=== PATIENT | female | born 1985 | race Asian ===

== ENCOUNTER 2021-11-17 08:15 | Inpatient (IN) | payer OTHER ==
[2021-11-17 09:21] VITALS: BMI 35.6
[2021-11-17] MEDS: ELECTROLYTE-148 SOLN 1,000 ML IV SCH ×3 (09:45→22:00)
[2021-11-17] MEDS ORDERED: OXYTOCIN 30 UNITS in 0.9% NS 30 UNIT/500 ML INFUS.BAG IVPB SCH (11:30)
[2021-11-17] MEDS ORDERED: OXYTOCIN 30 UNITS in 0.9% NS 30 UNIT/500 ML INFUS.BAG IVPB ONE (12:29)
[2021-11-17] MEDS ORDERED: FENTANYL/BUPIVACAINE/NS/PF - PCEA - 50 ML DISP.SYRIN EP ONE (21:08)
[2021-11-17] MEDS ORDERED: morphine SULFATE/PF 1 MG/2 ML (2cc Syringe - QUVA) ONE (22:35)
[2021-11-17] MEDS ORDERED: PHENYLEPHRINE HCL 10 MG/1 ML SINGLE DOSE VIAL ONE (22:38)
[2021-11-17] MEDS ORDERED: CITRIC ACID/SODIUM CITRATE 30 ML UNIT-DOSE CUP PO ONE (22:46)
[2021-11-17] MEDS ORDERED: KETOROLAC TROMETHAMINE 30 MG/1 ML VIAL ONE (23:51)
[2021-11-17] MEDS ORDERED: OXYTOCIN 10 UNITS/ML VIAL ONE (23:51)
[2021-11-17] MEDS ORDERED: ONDANSETRON 4 MG/2 ML VIAL ONE (23:51)
[2021-11-17] MEDS ORDERED: ceFAZolin SODIUM 1 GM VIAL ONE (23:51)
[2021-11-18] MEDS ORDERED: ONDANSETRON 4 MG/2 ML VIAL IVPB PRN (00:14)
[2021-11-18] MEDS ORDERED: ACETAMINOPHEN 1000 MG/100 ML BAG IVPB PRN (00:14)
[2021-11-18] MEDS ORDERED: IBUPROFEN 600 MG TABLET (FP) PO PRN (00:14)
[2021-11-18] MEDS ORDERED: ACETAMINOPHEN 325 MG TABLET (FP) PO PRN (00:14)
[2021-11-18] MEDS ORDERED: IBUPROFEN 800 MG/8 ML IJ IVPB PRN (00:14)
[2021-11-18] MEDS ORDERED: OXYTOCIN 20 UNITS in 0.9% NS 20 UNIT/1,000 ML INFUS.BAG IV SCH (00:15)
[2021-11-18] MEDS ORDERED: OXYTOCIN 10 UNITS/ML VIAL ONE (00:15)
[2021-11-18] MEDS ORDERED: morphine SULFATE/PF 1 MG/2 ML (2cc Syringe - QUVA) IT ONE (00:50)
[2021-11-18] MEDS ORDERED: ACETAMINOPHEN 1000 MG/100 ML BAG IVPB ONE (00:51)
[2021-11-18] MEDS ORDERED: OXYTOCIN 20 UNITS in 0.9% NS 20 UNIT/1,000 ML INFUS.BAG IV ONE (02:30)
[2021-11-18] MEDS: CEFAZOLIN 2 GM in DEXTROSE 5%-WATER - 50 ML IVPB SCH ×2 (04:17→11:44)
[2021-11-18] MEDS: SENNOSIDES/DOCUSATE COMBO (SENNA PLUS) TABLET (UD) PO PRN (17:41)
[2021-11-18] MEDS: oxyCODONE HCL 5 MG TABLET PO PRN (17:42)
[2021-11-18] MEDS: SIMETHICONE 80 MG TAB.CHEW (FP) PO PRN ×2 (17:42→20:25)
[2021-11-19] MEDS ORDERED: BISACODYL 10 MG SUPP.RECT RC PRN (00:15)
[2021-11-19] MEDS: SIMETHICONE 80 MG TAB.CHEW (FP) PO PRN ×3 (04:40→21:48)
[2021-11-19] MEDS: oxyCODONE HCL 5 MG TABLET PO PRN (04:40)
[2021-11-19 08:19] LABS: EOS % 0.1 % (0-4.5); HEMATOCRIT 34.8 % (32.4-45.2); HEMOGLOBIN 11.6 GM/dL (10.7-15.3); LYMPH % 7.6 % (8-40); MCH 28.5 pg (25.7-33.7); MCHC 33.4 g/dl (32.0-36.0); MEAN CELL VOLUME 85.3 fl (80-96); MEAN PLT VOLUME 11.5 fl (7.5-11.1); MONO % 5.6 % (3.8-10.2); NEUT % 86.7 % (42.8-82.8); PLATELET COUNT 149 10^3/uL (134-434); RBC 4.08 M/mm3 (3.60-5.2); RDW 14.7 % (11.6-15.6); WHITE BLOOD COUNT 17.1 K/mm3 (4.0-10.0)
[2021-11-19] MEDS ORDERED: ACETAMINOPHEN 1000 MG/100 ML BAG IVPB ONE ×2 (14:32→15:45)
[2021-11-19] MEDS ORDERED: ACETAMINOPHEN 500 MG TABLET (FP) PO SCH (14:45)
[2021-11-19] MEDS ORDERED: KETOROLAC TROMETHAMINE 30 MG/1 ML VIAL IVPUSH ONE ×2 (17:00→22:00)
[2021-11-19] MEDS ORDERED: IBUPROFEN 600 MG TABLET (FP) PO PRN (17:42)
[2021-11-19 19:22] LABS: EPI CELLS 28 /uL (0-25.1); HYALINE CASTS 5 /uL (0-3.1); PH,URINE 6.5 (5.0-8.0); URINE APPEARANCE CLOUDY; URINE BACTERIA 113 /uL (0-1359); URINE BILIRUBIN NEGATIVE (NEGATIVE); URINE COLOR YELLOW; URINE GLUCOSE (UA) NEGATIVE (NEGATIVE); URINE KETONE NEGATIVE (NEGATIVE); URINE LEUK ESTERASE 2+ (NEGATIVE); URINE NITRITE NEGATIVE (NEGATIVE); URINE PROTEIN 1+ (NEGATIVE); URINE RBC 679 /uL (0-23.9); URINE UROBILINOGEN 0.2 mg/dL (0.2-1.0); URINE WBC 350 /uL (0-25.8)
[2021-11-19] MEDS: SENNOSIDES/DOCUSATE COMBO (SENNA PLUS) TABLET (UD) PO PRN (21:48)
[2021-11-19] MEDS: ACETAMINOPHEN 500 MG TABLET (FP) PO SCH (21:50)
[2021-11-19] MEDS ORDERED: IBUPROFEN 600 MG TABLET (FP) PO SCH (23:00)
[2021-11-19] MEDS: CEPHALEXIN MONOHYDRATE 500 MG CAPSULE (UD) PO SCH (23:55)
[2021-11-20] MEDS: ACETAMINOPHEN 500 MG TABLET (FP) PO SCH ×3 (02:29→15:21)
[2021-11-20] MEDS: SIMETHICONE 80 MG TAB.CHEW (FP) PO PRN ×2 (02:29→15:21)
[2021-11-20] MEDS: CEPHALEXIN MONOHYDRATE 500 MG CAPSULE (UD) PO SCH (10:33)
[2021-11-20 12:31] VITALS: BP 123/83; PULSE 84; TEMP 97.9
== END 2021-11-20 17:38 | disposition home or self-care (01) | DRG 540 ==
LOC: JLDR 08:15 → J3W 11-18 02:46
PROVIDERS: ADMIT Obstetrics & Gynecology; ATTEND Specialist
PROC: 10D00Z1 Extraction of Products of Conception, Low, Open Approach (ICD-10-PCS; principal; 2021-11-17)
PROC: 3E033VJ Introduction of Other Hormone into Peripheral Vein, Percutaneous Approach (ICD-10-PCS; 2021-11-17)
DX: O76 Abnormality in fetal heart rate and rhythm complicating labor and delivery (principal); O36.5930 Maternal care for other known or suspected poor fetal growth, third trimester, not applicable or unspecified; O16.4 Unspecified maternal hypertension, complicating childbirth; O77.0 Labor and delivery complicated by meconium in amniotic fluid; O69.1XX0 Labor and delivery complicated by cord around neck, with compression, not applicable or unspecified; O32.4XX0 Maternal care for high head at term, not applicable or unspecified; O34.13 Maternal care for benign tumor of corpus uteri, third trimester; D25.9 Leiomyoma of uterus, unspecified; O61.0 Failed medical induction of labor; Z3A.38 38 weeks gestation of pregnancy; Z37.0 Single live birth
CPT/HCPCS: 36415; 74190-TC-FY; 81003; 85025; 85461; 86999; 88307-TC